=== PATIENT | female | born 1950 | race Caucasian/White ===

== ENCOUNTER 2023-05-04 23:21 | Emergency (ER) | payer MEDICARE, MEDICAID ==
[~2023-05-04] VITALS: Ht 162.6 cm; Wt 77.3 kg
[2023-05-04 23:27] VITALS: BP 155/69; PULSE 89; RESP 20; TEMP 98
[2023-05-04] MEDS ORDERED: LIDOCAINE 5% TRANSDERMAL PATCH TD ONE (23:45)
[2023-05-04] MEDS ORDERED: ACETAMINOPHEN 500 MG TABLET PO ONE (23:45)
[2023-05-04] MEDS ORDERED: LIDO700A15 TP (23:47)
[2023-05-04] MEDS ORDERED: ACET-3385 PO (23:47)
== END 2023-05-05 00:20 | disposition home or self-care (01) ==
LOC: EMS 23:23
DX: M54.16 Radiculopathy, lumbar region (principal); I10 Essential (primary) hypertension
CPT/HCPCS: 99283